=== PATIENT | female | born 1960 | race Caucasian/White ===

== ENCOUNTER 2019-12-21 07:52 | Day surgery (SDC) | payer MEDICAID ==
[~2019-12-21] VITALS: Ht 162.6 cm; Wt 81.6 kg
[2019-12-21] VITALS (11 sets, daily range): BP systolic 97–108; BP diastolic 46–55
[~2019-12-21 07:52] MED LIST: ESTRADIOL TOP; FLUT16SP26 BOTHNARES; LAMO25TA5 PO; LORA1TAB PO; ONDA4TAB9 PO; PANT-47 PO; PREG50CA PO
[2019-12-21] MEDS ORDERED: diphenhydrAMINE 25mg capsule PO PRN (08:10)
[2019-12-21] MEDS ORDERED: normal saline 1,000 ML IV SCH (08:10)
[2019-12-21 08:40] LABS: BASOPHILS # (AUTO) 0.1 X10'3 (0-0.2); EOSINOPHILS # (AUTO) 0.1 X10'3 (0-0.9); EOSINOPHILS % (AUTO) 1.4 % (0-6); HEMATOCRIT 35.9 % (35.0-45.0); HEMOGLOBIN 12.1 g/dl (12.0-16.0); LYMPHOCYTES # (AUTO) 2.5 X10'3 (1.1-4.8); LYMPHOCYTES % (AUTO) 24.6 % (21-51); MEAN CORPUSCULAR HEMOGLOBIN 31.8 PG (27.0-31.0); MEAN CORPUSCULAR HGB CONC 33.8 g/dL (33.0-36.5); MEAN CORPUSCULAR VOLUME 94.1 FL (78-98); MONOCYTES # (AUTO) 0.9 X10'3 (0-0.9); MONOCYTES % (AUTO) 9.3 % (2-12); NEUTROPHILS # (AUTO) 6.4 X10'3 (1.8-7.7); NEUTROPHILS % (AUTO) 63.7 % (42-75); PLATELET COUNT 401 X10'3 (140-440); RED BLOOD COUNT 3.81 X10'6 (4.20-5.60); RED CELL DISTRIBUTION WIDTH 13.5 % (11.5-14.5)
[2019-12-21 08:50] LABS: ALBUMIN 3.5 G/DL (3.4-5.0); ANION GAP 10 (8-16); BLOOD UREA NITROGEN 18 MG/DL (7-18); BUN/CREATININE RATIO 16.5 (6.6-38.0); CALCIUM 8.6 MG/DL (8.5-10.1); CHLORIDE 107 MMOL/L (99-107); CREATININE 1.09 MG/DL (0.40-0.90); GLUCOSE 95 MG/DL (70-104); POTASSIUM 4.1 MMOL/L (3.5-5.1); SODIUM 140 MMOL/L (135-145); TOTAL CARBON DIOXIDE 22.7 MMOL/L (24-32); eGFR 52 ML/MIN
[2019-12-21] MEDS ORDERED: NITR0.4T48 SL (08:51)
[2019-12-21] MEDS ORDERED: PANT20TA3 PO (08:51)
[2019-12-21] MEDS ORDERED: ASPI-1265 PO (08:51)
[2019-12-21] MEDS ORDERED: SERT25TA5 PO (08:51)
[2019-12-21] MEDS ORDERED: IBUP-1986 PO (08:51)
[2019-12-21] MEDS ORDERED: ATOR20TA66 PO (08:51)
[2019-12-21] MEDS ORDERED: LIDOcaine 1% (10mg/ml)w/preservative injection 20ml MDV ONE (08:59)
[2019-12-21] MEDS ORDERED: midazolam 2 mg/2 ml injection ONE ×2 (08:59→09:33)
[2019-12-21] MEDS ORDERED: iohexol 350 MG/ML 50ML vial IV ONE (08:59)
[2019-12-21] MEDS ORDERED: heparin 1,000unit/ml 10ml vial 10 ML ONE (08:59)
[2019-12-21] MEDS ORDERED: fentaNYL/PF 50MCG/1 ML 2ML syringe ONE (08:59)
[2019-12-21] MEDS ORDERED: iohexol 350MG/ML 100ml bottle IV ONE (08:59)
[2019-12-21] MEDS ORDERED: proCHLORperazine 10 MG/2 ml inj IV PRN (13:40)
[2019-12-21] MEDS ORDERED: HYDROcodone/acetaminophen 10/325mg tab PO PRN (13:40)
[2019-12-21] MEDS ORDERED: OXAZEpam 15mg capsule PO PRN (13:40)
[2019-12-21] MEDS ORDERED: ondansetron/PF 4mg/2ml inj IV PRN (13:40)
[2019-12-21] MEDS ORDERED: HYDROcodone/acetaminophen 5mg/325mg tablet PO PRN (13:40)
== END 2019-12-21 14:05 | disposition home or self-care (01) ==
LOC: SSTAY O 07:52
PROVIDERS: ATTEND Internal Medicine Cardiovascular Disease
DX: R94.39 Abnormal result of other cardiovascular function study (principal); E78.5 Hyperlipidemia, unspecified; Z79.01 Long term (current) use of anticoagulants; Z79.899 Other long term (current) drug therapy; Z79.82 Long term (current) use of aspirin
CPT/HCPCS: 36415; 80048; 83735; 85025; 85610; 93005; 93458; 99152; C1760; C1769; C1894; J1644; J2001; J2250; J3010; Q0163; Q9967; A4620; A6258

== ENCOUNTER 2022-02-11 16:13 | Emergency (ER) | payer MEDICARE, MEDICAID ==
[~2022-02-11] VITALS: Ht 162.6 cm; Wt 77.3 kg
[~2022-02-11 16:13] MED LIST changes: +ASPI-1265 PO; +ATOR20TA66 PO; -ESTRADIOL TOP; +IBUP-1986 PO; -LORA1TAB PO; +NITR0.4T48 SL; -ONDA4TAB9 PO; -PANT-47 PO; +PANT20TA18 PO; -PREG50CA PO; +SERT-432 PO
[2022-02-11 16:38] VITALS: BP 110/80
[2022-02-11] MEDS ORDERED: CEPH-585 PO (17:10)
[2022-02-11] MEDS ORDERED: TETanus/Pertussis (Acell)/Diphther VAC/PF (Tdap-Adult) 0.5ml syringe IMVAC ONE (17:10)
== END 2022-02-12 03:17 | disposition home or self-care (01) ==
LOC: ER 16:14
DX: S60.551A Superficial foreign body of right hand, initial encounter (principal); Z88.8 Allergy status to other drugs, medicaments and biological substances; Z88.6 Allergy status to analgesic agent; Z79.82 Long term (current) use of aspirin; Z79.899 Other long term (current) drug therapy; Z79.2 Long term (current) use of antibiotics; X58.XXXA Exposure to other specified factors, initial encounter; Y93.89 Activity, other specified; Y92.89 Other specified places as the place of occurrence of the external cause; Y99.8 Other external cause status
CPT/HCPCS: 90471; 90715; 99283; 99284